=== PATIENT | male | born 1970 | race Caucasian/White ===

== ENCOUNTER 2016-10-11 20:38 | Emergency (ER) | payer BC ==
[2016-10-11 20:43] VITALS: RESP 16
[2016-10-11] MEDS ORDERED: SODIUM CHLORIDE 0.9% 1,000 ML IV STA (20:56)
[2016-10-11] MEDS ORDERED: HYDROmorphone 1 MG/ML 1 ML SYRINGE IVP STA (21:06)
[2016-10-11] MEDS ORDERED: ONDANSETRON 4 MG/2 ML VIAL IVP STA (21:06)
[2016-10-11] MEDS ORDERED: KETOROLAC 30 MG/ML 1 ML VIAL IVP STA (21:06)
[2016-10-11 21:16] LABS: Basophils % (A) 0 %; CH 31.2; CHCM 35.8; Eosinophils # (A) 0.1 k/uL (0-0.7); Eosinophils % (A) 1 %; HCT 44.8 % (39.0-53.0); HDW 2.74; HGB 15.9 gm/dL (13.0-17.5); Luc # (Auto) 0.17; Luc % (Auto) 2; Lymphocytes # (A) 1.5 k/uL (1.0-4.8); Lymphocytes % (A) 14 %; MCH 30.9 pg (25.0-35.0); MCHC 35.4 g/dL (31.0-37.0); MCV 87.5 fL (80.0-100.0); Mean Platelet Volume 8.8; Monocytes # (A) 0.5 k/uL (0-1.0); Monocytes % (A) 5 %; Neutrophils # (A) 8.3 k/uL (1.3-7.7); Neutrophils % (A) 78 %; RBC 5.12 m/uL (4.30-5.90); RDW 13.6 % (11.5-15.5); WBC 10.6 k/uL (3.8-10.6); WBC (Perox) 10.33
--- NOTE | 2016-10-11 21:39 | XR ---
EXAMINATION TYPE: XR KUB DATE OF EXAM: 10/11/2016 COMPARISON: May 12, 2011 HISTORY: Flank pain TECHNIQUE: 2 views FINDINGS: There is no sign of intestinal obstruction or pneumoperitoneum. Fecal pattern is normal. Th ere is no sign of a mass. There are no pathologic calcifications over the kidneys. Lung bases are velma ar. IMPRESSION: Nonacute abdomen. No change.
[2016-10-11 21:40] LABS: Calcium 9.4 mg/dL (8.4-10.2); Potassium 4.8 mmol/L (3.5-5.1); Total Protein 7.3 g/dL (6.3-8.2)
--- NOTE | 2016-10-11 21:42 | ED ---
Abdominal Pain HPI - General Chief Complaint: Abdominal Pain Stated Complaint: Poss kidney stones Time Seen by Provider: 10/11/16 20:56 Source: patient, RN notes reviewed Mode of arrival: ambulatory Limitations: no limitations - History of Present Illness Initial Comments: 46-year-old male present emergency department for left flank pain. Patient states it started this morning states he episodes nausea vomiting. Patient states that he's had a history kidney stones and this feels very similar. Patient states it wraps right around his lower abdomen. Patient had prior hernia surgeries in the past but nothing recent. Patient denies any fever, chills, chest pain, shortness breath, diarrhea constipation. - Related Data Home Medications Medication Instructions Recorded Confirmed Fluticasone/Salmeterol [Advair 1 puff INHALATION RT-BID 11/08/14 10/11/16 250-50 Diskus] Ibuprofen [Advil] 200 mg PO Q6HR PRN 10/11/16 10/11/16 Previous Rx's Medication Instructions Recorded HYDROcodone/APAP 7.5-325MG [[place] 1 tab PO Q6HR PRN #20 tab 10/11/16 7.5-325] Ondansetron Odt [Zofran Odt] 4 mg PO Q8HR PRN #10 tab 10/11/16 Allergies Allergy/AdvReac Type Severity Reaction Status Date / Time amoxicillin AdvReac THRUSH Verified 10/11/16 20:50 Review of Systems ROS Statement: Those systems with pertinent positive or pertinent negative responses have been documented in the HPI. ROS Other: All systems not noted in ROS Statement are negative. Past Medical History Past Medical History: Asthma Additional Past Medical History / Comment(s): FX LEFT FOREARM, kidney stones 2016 History of Any Multi-Drug Resistant Organisms: None Reported Past Surgical History: Hernia Repair Additional Past Surgical History / Comment(s): SINAN HERNIA, EPIDURAL INJECTIONS FOR PAIN IN PAST Additional Past Anesthesia/Blood Transfusion Reaction / Comment(s): STATES "HAS A HARD TIME WAKING UP" Past Psychological History: No Psychological Hx Reported Smoking Status: Never smoker Past Alcohol Use History: None Reported Past Drug Use History: None Reported - Past Family History Mother Family Medical History: No Reported History General Exam Limitations: no limitations General appearance: alert, in no apparent distress Respiratory exam: Present: normal lung sounds bilaterally. Absent: respiratory distress, wheezes, rales, rhonchi, stridor Cardiovascular Exam: Present: regular rate, normal rhythm, normal heart sounds. Absent: systolic murmur, diastolic murmur, rubs, gallop, clicks GI/Abdominal exam: Present: soft, tenderness (Mild left lower quadrant), normal bowel sounds. Absent: distended, guarding, rebound, rigid Back exam: Present: CVA tenderness (L). Absent: CVA tenderness (R) Neurological exam: Present: alert, oriented X3, CN II-XII intact Skin exam: Present: warm, dry, intact, normal color. Absent: rash Course Vital Signs 10/11/16 10/11/16 20:40 22:06 Temperature 97.8 F Pulse Rate 79 61 Respiratory 16 16 Rate Blood Pressure 144/85 126/79 O2 Sat by Pulse 100 98 Oximetry Medical Decision Making - Medical Decision Making 46-year-old male present emergency Department chief complaint of left flank pain. Patient has 6 mm stone distal left ureter along with additional 6 mm stone in this kidney. There is no evidence of edema checked infection. Patient does have renal failure which may be acute though he states he may have had a history of this unsure. Patient is advised that he needs a follow-up urologist on Friday and possible furnace cleaner. He does agree this plan. We did discuss not taking any NSAIDs. Return parameters were discussed. Case discussed Dr. Grady. - Lab Data Result diagrams: 10/11/16 21:05 10/11/16 21:05 Lab Results 10/11/16 10/11/16 10/11/16 Range/Units 21:05 21:05 21:08 WBC 10.6 (3.8-10.6) k/uL RBC 5.12 (4.30-5.90) m/uL Hgb 15.9 (13.0-17.5) gm/dL Hct 44.8 (39.0-53.0) % MCV 87.5 (80.0-100.0) fL MCH 30.9 (25.0-35.0) pg MCHC 35.4 (31.0-37.0) g/dL RDW 13.6 (11.5-15.5) % Plt Count 179 (150-450) k/uL Neutrophils % 78 % Lymphocytes % 14 % Monocytes % 5 % Eosinophils % 1 % Basophils % 0 % Neutrophils # 8.3 H (1.3-7.7) k/uL Lymphocytes # 1.5 (1.0-4.8) k/uL Monocytes # 0.5 (0-1.0) k/uL Eosinophils # 0.1 (0-0.7) k/uL Basophils # 0.0 (0-0.2) k/uL Sodium 141 (137-145) mmol/L Potassium 4.8 (3.5-5.1) mmol/L Chloride 105 (98-107) mmol/L Carbon Dioxide 25 (22-30) mmol/L Anion Gap 11 mmol/L BUN 18 (9-20) mg/dL Creatinine 1.96 H (0.66-1.25) mg/dL Est GFR (MDRD) Af Amer 45 (>60 ml/min/1.73 sqM) Est GFR (MDRD) Non-Af 37 (>60 ml/min/1.73 sqM) Glucose 101 H (74-99) mg/dL Calcium 9.4 (8.4-10.2) mg/dL Total Bilirubin 1.0 (0.2-1.3) mg/dL AST 38 (17-59) U/L ALT 68 (21-72) U/L Alkaline Phosphatase 85 (38-126) U/L Total Protein 7.3 (6.3-8.2) g/dL Albumin 4.6 (3.5-5.0) g/dL Amylase 37 (30-110) U/L Lipase 144 (23-300) U/L Urine Color Yellow Urine Appearance Clear (Clear) Urine pH 7.0 (5.0-8.0) Ur Specific [place] 1.020 (1.001-1.035) Urine Protein Trace H (Negative) Urine Glucose (UA) Negative (Negative) Urine Ketones 1+ H (Negative) Urine Blood Negative (Negative) Urine Nitrite Negative (Negative) Urine Bilirubin Negative (Negative) Urine Urobilinogen <2.0 (<2.0) mg/dL Ur Leukocyte Esterase Negative (Negative) Disposition Clinical Impression: Ureteral calculi, Acute renal failure Disposition: HOME SELF-CARE Condition: Stable Instructions: Kidney Stones (ED) Additional Instructions: Do not take any NSAIDs. Please return to the Emergency Department if symptoms worsen or any other concerns. Prescriptions: HYDROcodone/APAP 7.5-325MG [[place] 7.5-325] 1 tab PO Q6HR PRN #20 tab PRN Reason: Pain Ondansetron Odt [Zofran Odt] 4 mg PO Q8HR PRN #10 tab PRN Reason: Nausea Referrals: David Taylor MD [Primary Care Provider] - 1-2 days Ivan Contreras MD [STAFF PHYSICIAN] - 1-2 days Jaleesa Rosario MD [STAFF PHYSICIAN] - 1-2 days Time of Disposition: 22:42
[2016-10-11 21:45] LABS: Appearance,Urine Clear (Clear); Bilirubin,Urine Negative (Negative); Glucose,Urine (UA) Negative (Negative); Ketones,Urine 1+ (Negative); Leukocyte Esterase,Urine Negative (Negative); Nitrite,Urine Negative (Negative); Protein,Urine Trace (Negative); UA Billing (MACRO vs. MICRO) CHEM; Urobilinogen,Urine <2.0 mg/dL (<2.0)
--- NOTE | 2016-10-11 22:31 | CT ---
EXAM: CT Abdomen and Pelvis Without Intravenous Contrast CLINICAL HISTORY: Reason: left flank pain, TECHNIQUE: Axial computed tomography images of the abdomen and pelvis without intravenous contrast. CTDI is 22.00 mGy and DLP is 1128.60 mGy-cm. This CT exam was performed using one or more of the following dose reduction techniques: automated exposure control, adjustment of the mA and/or kV according to patient size, and/or use of iterative reconstruction technique. COMPARISON: No relevant prior studies available. FINDINGS: Lower thorax: Trace scarring/atelectasis at the lung bases. Micronodule in the left lower lobe. ABDOMEN: Liver: Hepatic steatosis. Gallbladder and bile ducts: Unremarkable. No calcified stones. No ductal dilation. Pancreas: Unremarkable. No ductal dilation. Spleen: Unremarkable. No splenomegaly. Adrenals: Unremarkable. No mass. Kidneys and ureters: 6 mm stone in the distal left ureter causing minimal hydronephrosis. Moderate perinephric fat stranding; recommend correlation with urinalysis. Additional 6 mm nonobstructing stone in the left kidney. Unremarkable right kidney. Stomach and bowel: Diverticulosis. No bowel inflammation or obstruction. Appendix: No findings to suggest acute appendicitis. PELVIS: Bladder: Unremarkable. No stones. Reproductive: Unremarkable as visualized. ABDOMEN and PELVIS: Intraperitoneal space: Unremarkable. No free air. No significant fluid collection. Bones/joints: Mild degenerative changes of the osseous structures. Left L5 pars defect with 2 mm anterolisthesis at L5-S1. No acute fracture. Soft tissues: Unremarkable. Vasculature: Unremarkable. No abdominal aortic aneurysm. Lymph nodes: Unremarkable. No enlarged lymph nodes. IMPRESSION: 1. 6 mm stone in the distal left ureter causing minimal hydronephrosis. Moderate perinephric fat stranding; recommend correlation with urinalysis. Additional 6 mm nonobstructing stone in the left kidney. 2. Diverticulosis. 3. Hepatic steatosis.
[2016-10-11 22:54] VITALS: BP 133/69; PULSE 74; TEMP 97.9
== END 2016-10-11 22:53 | disposition home or self-care (01) ==
LOC: EC 20:38
DX: N20.2 Calculus of kidney with calculus of ureter (principal); N17.9 Acute kidney failure, unspecified; Z79.899 Other long term (current) drug therapy; Z87.442 Personal history of urinary calculi; Z79.51 Long term (current) use of inhaled steroids; Z88.0 Allergy status to penicillin
CPT/HCPCS: 99284; 96374; 96375; 96361; 36415; 80053; 82150; 83690; 85025; 81003; 74000; 74176; J2405; J1885; J1170

== ENCOUNTER 2024-06-27 14:30 | Emergency (ER) | payer BC ==
--- NOTE | 2024-06-27 15:00 | ED ---
ENT HPI - General Chief complaint: ENT Stated complaint: Object lodged in throat Time Seen by Provider: 06/27/24 15:00 Source: patient Mode of arrival: ambulatory Limitations: no limitations - History of Present Illness Initial comments: 54-year-old male presented the ER for evaluation of foreign body sensation in throat. Patient states last night he had [employer] for dinner. He states he ate a hamburger and chili cheese fries. Since then he has been having irritation to his throat. He states it feels like there is something stuck in it. He states when he swallows it is mildly painful and he can feel the object move. Patient has been able to consume liquids but when attempting to eat a piece of bread he threw it up within minutes. He denies a history of esophageal strictures. He denies any difficulty breathing, chest pain, abdominal pain, constipation/diarrhea, urinary complaints, fevers or chills. No other complaints at this time. - Related Data Home Medications Medication Instructions Recorded Confirmed Fluticasone Propion/Salmeterol 1 puff INHALATION RT-BID 11/08/14 10/11/16 [Advair 250-50 Diskus] Ibuprofen [Advil] 200 mg PO Q6HR PRN 10/11/16 10/11/16 Previous Rx's Medication Instructions Recorded HYDROcodone/APAP 7.5-325MG [[place] 1 tab PO Q6HR PRN #20 tab 10/11/16 7.5-325] Ondansetron Odt [Zofran Odt] 4 mg PO Q8HR PRN #10 tab 10/11/16 Allergies Allergy/AdvReac Type Severity Reaction Status Date / Time amoxicillin AdvReac THRUSH Verified 06/27/24 14:42 Review of Systems ROS Statement: Those systems with pertinent positive or pertinent negative responses have been documented in the HPI. ROS Other: All systems not noted in ROS Statement are negative. Past Medical History Past Medical History: Asthma Additional Past Medical History / Comment(s): FX LEFT FOREARM, kidney stones 2016 History of Any Multi-Drug Resistant Organisms: None Reported Past Surgical History: Hernia Repair Additional Past Surgical History / Comment(s): SINAN HERNIA, EPIDURAL INJECTIONS FOR PAIN IN PAST Additional Past Anesthesia/Blood Transfusion Reaction / Comment(s): STATES "HAS A HARD TIME WAKING UP" Past Psychological History: No Psychological Hx Reported Smoking Status: Never smoker Past Alcohol Use History: None Reported Past Drug Use History: None Reported - Past Family History Mother Family Medical History: No Reported History General Exam Limitations: no limitations General appearance: alert, in no apparent distress ENT exam: Present: mucous membranes moist (Oropharynx is mildly erythematous bilateral tonsils mildly edematous. No exudates present.) Neck exam: Present: normal inspection. Absent: tenderness, meningismus, lymphadenopathy Respiratory exam: Present: normal lung sounds bilaterally. Absent: respiratory distress, wheezes, rales, rhonchi, stridor Cardiovascular Exam: Present: regular rate, normal rhythm, normal heart sounds. Absent: systolic murmur, diastolic murmur, rubs, gallop, clicks Neurological exam: Present: alert, oriented X3, CN II-XII intact Skin exam: Present: warm, dry, intact, normal color. Absent: rash Course Vital Signs 06/27/24 06/27/24 14:38 16:02 Temperature 97.8 F 98.4 F Pulse Rate 78 84 Respiratory 18 16 Rate Blood Pressure 123/85 134/91 O2 Sat by Pulse 99 99 Oximetry Medical Decision Making - Medical Decision Making Was pt. sent in by a medical professional or institution (, PA, [employer], urgent care, hospital, or usp...) When possible be specific @ -No Did you speak to anyone other than the patient for history (EMS, parent, family, police, friend...)? What history was obtained from this source @ -Patient's , at bedside, aiding in HPI and past medical history. Did you review nursing and triage notes (agree or disagree)? Why? @ -I reviewed and agree with nursing and triage notes Were old charts reviewed (outside hosp., previous admission, EMS record, old EKG, old radiological studies, urgent care reports/EKG's, usp records)? Report findings @ -No old charts were reviewed Differential Diagnosis (chest pain, altered mental status, abdominal pain women, abdominal pain men, vaginal bleeding, weakness, fever, dyspnea, syncope, headache, dizziness, GI bleed, back pain, seizure, CVA, palpatations, mental health, musculoskeletal)? @ -Esophageal foreign body, aspiration, esophageal obstruction, GERD... This list is not meant to be all-inclusive EKG interpreted by me (3pts min.). @ -None done X-rays interpreted by me (1pt min.). @ -None done CT interpreted by me (1pt min.). @ -None done U/S interpreted by me (1pt. min.). @ -None done What testing was considered but not performed or refused? (CT, X-rays, U/S, labs)? Why? @ -None What meds were considered but not given or refused? Why? @ -None Did you discuss the management of the patient with other professionals (professionals i.e. , PA, [employer], lab, RT, psych nurse, hospital social worker, dog show judge, teacher, patrol officer, keycase assembler)? Give summary @ -No Was smoking cessation discussed for >3mins.? @ -No Was critical care preformed (if so, how long)? @ -No Were there social determinants of health that impacted care today? How? (Homel essness, low income, unemployed, alcoholism, drug addiction, transportation, low edu. Level, literacy, decrease access to med. care, group home, rehab)? @ -No Was there de-escalation of care discussed even if they declined (Discuss DNR or withdrawal of care, Hospice)? DNR status @ -No What co-morbidities impacted this encounter? (DM, HTN, Smoking, COPD, CAD, Cancer, CVA, ARF, Chemo, Hep., AIDS, mental health diagnosis, sleep apnea, morbid obesity)? @ -None Was patient admitted / discharged? Hospital course, mention meds given and route, prescriptions, significant lab abnormalities, going to OR and other pertinent info. @ -Discharge. 54-year-old male presented the ER for evaluation of foreign body sensation in throat. Vitals within acceptable limits. Patient in no signs of acute distress nontoxic-appearing. Patient given IV glucagon and Ativan and instructed to drink carbonated beverage. Patient felt relief after this. Patient tolerating oral intake and was able to consume water and Jell-O without difficulty. I instructed patient to follow-up with PCP and GI for further evaluation and treatment. Patient is agreeable. Return parameters discussed. Patient discharged stable condition. Patient verbally expressed understanding and agreement with care plan. Case discussed with ED attending, Dr. Chacon. Undiagnosed new problem with uncertain prognosis? @ -No Drug Therapy requiring intensive monitoring for toxicity (Heparin, Nitro, Insulin, Cardizem)? @ -No Were any procedures done? @ -No Diagnosis/symptom? @ -Foreign body sensation in throat Acute, or Chronic, or Acute on Chronic? @ -acute Uncomplicated (without systemic symptoms) or Complicated (systemic symptoms)? @ -Uncomplicated Side effects of treatment? @ -No Exacerbation, Progression, or Severe Exacerbation? @ -No Poses a threat to life or bodily function? How? (Chest pain, [place], [place], pneumonia, PE, COPD, DKA, ARF, appy, cholecystitis, CVA, Diverticulitis, Homicidal, Suicidal, threat to staff... and all critical care pts) @ -No Disposition Clinical Impression: Foreign body sensation, throat Disposition: HOME SELF-CARE Condition: Stable Instructions (If sedation given, give patient instructions): Esophageal Foreign Body (ED) Additional Instructions: Follow-up with PCP. Return to the ER for any new or worsening concerns. I recommend liquid or soft foods diet. Is patient prescribed a controlled substance at d/c from ED?: No Referrals: David Taylor MD [Primary Care Provider] - 1-2 days Time of Disposition: 15:46
[2024-06-27] MEDS: GLUCAGON 1 MG/ML VIAL IVP STA (15:13)
[2024-06-27 16:09] VITALS: BP 134/91; PULSE 84; RESP 16; TEMP 98.4
== END 2024-06-27 16:02 | disposition home or self-care (01) ==
LOC: EC 14:30
DX: R09.A2 Foreign body sensation, throat (principal); Z88.0 Allergy status to penicillin
CPT/HCPCS: 99283; 96374; 96375; J1610; J3360

== ENCOUNTER 2024-07-07 09:46 | Emergency (ER) | payer BC ==
[2024-07-07] MEDS: KETOROLAC 15 MG/ML 1 ML VIAL IVP STA (10:17)
[2024-07-07] MEDS: SODIUM CHLORIDE 0.9% 1,000 ML IV ONE (10:17)
[2024-07-07] MEDS: ONDANSETRON 4 MG/2 ML VIAL IVP STA (10:18)
[2024-07-07] MEDS: DICYCLOMINE 10 MG/ML 2 ML AMP IM STA (10:18)
--- NOTE | 2024-07-07 10:33 | ED ---
Abdominal Pain HPI - General Chief Complaint: Abdominal Pain Stated Complaint: abd pain Time Seen by Provider: 07/07/24 09:52 Source: patient, RN notes reviewed Mode of arrival: ambulatory Limitations: no limitations - History of Present Illness Initial Comments: This is a 54 year old male who presents to the emergency department for abdominal pain. Reports intermittent lower abdominal pain over the last week. He also reports intermittent diarrhea, nausea, and vomiting. Unsure what is triggering his symptoms. He does believe it to be positional to some extent. Denies any fevers/chills. He saw his PCP this morning, who advised him to come here for further evaluation. He does also note that he recently had an abnormal Cologuard. He was advised to make a follow-up appointment with his PCP to discuss a colonoscopy. MD Complaint: abdominal pain - Related Data Home Medications Medication Instructions Recorded Confirmed Fluticasone Propion/Salmeterol 1 puff INHALATION RT-BID 11/08/14 07/07/24 [Advair 250-50 Diskus] Atorvastatin [Lipitor] 20 mg PO DAILY 07/07/24 07/07/24 Semaglutide [Ozempic] 2 mg SQ SA 07/07/24 07/07/24 lisinopriL [Zestril] 2.5 mg PO DAILY 07/07/24 07/07/24 Previous Rx's Medication Instructions Recorded Dicyclomine [Bentyl] 20 mg PO QID PRN #30 tablet 07/07/24 Ketorolac [Toradol] 10 mg PO Q6HR PRN #15 tab 07/07/24 Ondansetron Odt [Zofran Odt] 4 mg PO Q8HR PRN #20 tab 07/07/24 Allergies Allergy/AdvReac Type Severity Reaction Status Date / Time amoxicillin AdvReac THRUSH Verified 07/07/24 11:17 Review of Systems ROS Statement: Those systems with pertinent positive or pertinent negative responses have been documented in the HPI. ROS Other: All systems not noted in ROS Statement are negative. Past Medical History Past Medical History: Asthma Additional Past Medical History / Comment(s): FX LEFT FOREARM, kidney stones 2015 History of Any Multi-Drug Resistant Organisms: None Reported Past Surgical History: Hernia Repair Additional Past Surgical History / Comment(s): SINAN HERNIA, EPIDURAL INJECTIONS FOR PAIN IN PAST Additional Past Anesthesia/Blood Transfusion Reaction / Comment(s): STATES "HAS A HARD TIME WAKING UP" Past Psychological History: No Psychological Hx Reported Smoking Status: Never smoker Past Alcohol Use History: None Reported Past Drug Use History: None Reported - Past Family History Mother Family Medical History: No Reported History General Exam Limitations: no limitations General appearance: alert, in no apparent distress Head exam: Present: atraumatic, normocephalic, normal inspection Respiratory exam: Present: normal lung sounds bilaterally. Absent: respiratory distress, wheezes, rales, rhonchi, stridor Cardiovascular Exam: Present: regular rate, normal rhythm GI/Abdominal exam: Present: soft, normal bowel sounds. Absent: distended, tenderness, guarding, rebound, rigid Neurological exam: Present: alert, oriented X3, CN II-XII intact Psychiatric exam: Present: normal affect, normal mood Skin exam: Present: warm, dry, intact, normal color. Absent: rash Course Vital Signs 07/07/24 07/07/24 07/07/24 09:47 10:45 12:17 Temperature 97.9 F 97.8 F Pulse Rate 88 65 70 Respiratory 18 16 17 Rate Blood Pressure 113/83 131/92 120/82 O2 Sat by Pulse 98 97 98 Oximetry Medical Decision Making - Medical Decision Making This is a 54 year old male who presents to the emergency department for abdominal pain. Was pt. sent in by a medical professional or institution? @ -No Did you speak to anyone other than the patient for history? @ -No Did you review nursing and triage notes? @ -Yes, and I agree, it is accurate with regards to the patient's symptoms. Were old charts reviewed? @ -No Differential Diagnosis? @ -Differential Abdominal Pain Men: Appendicitis, cholecystitis, diverticulosis, ischemic bowel, pancreatitis, hepatitis, UTI, gastroenteritis, AAA, incarcerated hernia, bowel obstruction, constipation, inflammatory bowel, hepatitis, peptic ulcer disease, splenic infarction, perforated viscus, testicular torsion, this is not meant to be an all-inclusive list EKG interpreted by me (3pts min.)? @ -Not obtained X-rays interpreted by me (1pt min.)? @ -Not obtained CT interpreted by me (1pt min.)? @ -CT scan of the abdomen and pelvis obtained. My interpretation identifies no bowel wall thickening or free air. U/S interpreted by me (1pt. min.)? @ -Not obtained What testing was considered but not performed? (CT, X-rays, U/S, labs)? Why? @ -None What meds were considered but not given? Why? @ -None Did you discuss the management of the patient with other professionals? @ -No Did you reconcile home meds? @ -No Was smoking cessation discussed for >3mins.? @ -No Was critical care preformed (if so, how long)? @ -No Were there social determinants of health that impacted care today? How? (Homelessness, low income, unemployed, alcoholism, drug addiction, t ransportation, low edu. Level, literacy, decrease access to med. care, nursing home, rehab)? @ -No Was there de-escalation of care discussed even if they declined? (Discuss DNR or withdrawal of care, Hospice)? @ -No What co-morbidities impacted this encounter? (DM, HTN, Smoking, COPD, CAD, Cancer, CVA, Hep., AIDS, mental health diagnosis, sleep apnea, morbid obesity)? @ -None Was patient admitted / discharged? @ -Discharged. Lab work unremarkable. Urinalysis negative for signs of infection. CT scan of the abdomen and pelvis obtained revealing no acute process. Symptoms treated in the emergency department. Advised that he needs to follow-up on the abnormal Cologuard study for a colonoscopy. The cause of his pain at this point is not entirely clear. Bentyl, Toradol, and Zofran prescribed for further management, all of which seemed to help in the emergency department. Patient discharged home in stable condition. Case discussed with ED attending Dr. Maciel. Return precautions reviewed in depth, the patient is instructed to return to the emergency department with any new, worsening, or concerning symptoms. Patient verbalized understanding. Undiagnosed new problem with uncertain prognosis? @ -None Drug Therapy requiring intensive monitoring for toxicity (Heparin, Nitro, Insulin, Cardizem)? @ -None Were any procedures done? @ -None Diagnosis/symptom? @ -Abdominal pain, nausea and vomiting, diarrhea Acute, or Chronic, or Acute on Chronic? @ -Acute Uncomplicated (without systemic symptoms) or Complicated (systemic symptoms)? @ -Uncomplicated Side effects of treatment? @ -None Exacerbation, Progression, or Severe Exacerbation] @ -Not applicable Poses a threat to life or bodily function? @ -No - Lab Data Result diagrams: 07/07/24 10:37 07/07/24 10:37 Lab Results 07/07/24 07/07/24 07/07/24 Range/Units 10:37 10:37 10:37 WBC 10.3 (3.8-10.6) k/uL RBC 5.54 (4.30-5.90) m/uL Hgb 17.1 (13.0-17.5) gm/dL Hct 50.0 (39.0-53.0) % MCV 90.1 (80.0-100.0) fL MCH 30.8 (25.0-35.0) pg MCHC 34.2 (31.0-37.0) g/dL RDW 13.2 (11.5-15.5) % Plt Count 194 (150-450) k/uL MPV 8.6 Neutrophils % 72 % Lymphocytes % 15 % Monocytes % 4 % Eosinophils % 8 % Basophils % 0 % Neutrophils # 7.4 (1.3-7.7) k/uL Lymphocytes # 1.5 (1.0-4.8) k/uL Monocytes # 0.5 (0-1.0) k/uL Eosinophils # 0.8 H (0-0.7) k/uL Basophils # 0.0 (0-0.2) k/uL Sodium 136 L (137-145) mmol/L Potassium 4.7 (3.5-5.1) mmol/L Chloride 98 (98-107) mmol/L Carbon Dioxide 28 (22-30) mmol/L Anion Gap 10 mmol/L BUN 21 H (9-20) mg/dL Creatinine 1.20 (0.66-1.25) mg/dL Est GFR (CKD-EPI)AfAm 78 (>60 ml/min/1.73 sqM) Est GFR (CKD-EPI)NonAf 68 (>60 ml/min/1.73 sqM) Glucose 100 H (74-99) mg/dL Plasma Lactic Acid Thang 1.5 (0.7-2.0) mmol/L Calcium 9.6 (8.4-10.2) mg/dL Magnesium 1.9 (1.6-2.3) mg/dL Total Bilirubin 1.0 (0.2-1.3) mg/dL AST 23 (17-59) U/L ALT 35 (4-49) U/L Alkaline Phosphatase 98 (38-126) U/L Total Protein 6.8 (6.3-8.2) g/dL Albumin 4.2 (3.5-5.0) g/dL Amylase 49 (30-110) U/L Lipase 251 (23-300) U/L Urine Color Urine Appearance (Clear) Urine pH (5.0-8.0) Ur Specific Alvo (1.001-1.035) Urine Protein (Negative) Urine Glucose (UA) (Negative) Urine Ketones (Negative) Urine Blood (Negative) Urine Nitrite (Negative) Urine Bilirubin (Negative) Urine Urobilinogen (<2.0) mg/dL Ur Leukocyte Esterase (Negative) 07/07/24 Range/Units 12:28 WBC (3.8-10.6) k/uL RBC (4.30-5.90) m/uL Hgb (13.0-17.5) gm/dL Hct (39.0-53.0) % MCV (80.0-100.0) fL MCH (25.0-35.0) pg MCHC (31.0-37.0) g/dL RDW (11.5-15.5) % Plt Count (150-450) k/uL MPV Neutrophils % % Lymphocytes % % Monocytes % % Eosinophils % % Basophils % % Neutrophils # (1.3-7.7) k/uL Lymphocytes # (1.0-4.8) k/uL Monocytes # (0-1.0) k/uL Eosinophils # (0-0.7) k/uL Basophils # (0-0.2) k/uL Sodium (137-145) mmol/L Potassium (3.5-5.1) mmol/L Chloride (98-107) mmol/L Carbon Dioxide (22-30) mmol/L Anion Gap mmol/L BUN (9-20) mg/dL Creatinine (0.66-1.25) mg/dL Est GFR (CKD-EPI)AfAm (>60 ml/min/1.73 sqM) Est GFR (CKD-EPI)NonAf (>60 ml/min/1.73 sqM) Glucose (74-99) mg/dL Plasma Lactic Acid Thang (0.7-2.0) mmol/L Calcium (8.4-10.2) mg/dL Magnesium (1.6-2.3) mg/dL Total Bilirubin (0.2-1.3) mg/dL AST (17-59) U/L ALT (4-49) U/L Alkaline Phosphatase (38-126) U/L Total Protein (6.3-8.2) g/dL Albumin (3.5-5.0) g/dL Amylase (30-110) U/L Lipase (23-300) U/L Urine Color Light Yellow Urine Appearance Clear (Clear) Urine pH 6.5 (5.0-8.0) Ur Specific Alvo >1.050 H (1.001-1.035) Urine Protein Trace H (Negative) Urine Glucose (UA) Negative (Negative) Urine Ketones 1+ H (Negative) Urine Blood Negative (Negative) Urine Nitrite Negative (Negative) Urine Bilirubin Negative (Negative) Urine Urobilinogen <2.0 (<2.0) mg/dL Ur Leukocyte Esterase Negative (Negative) - Radiology Data Radiology results: report reviewed, image reviewed Disposition Clinical Impression: Abdominal pain, Nausea and vomiting, Diarrhea Disposition: HOME SELF-CARE Instructions (If sedation given, give patient instructions): Abdominal Pain (ED) Additional Instructions: Return to the emergency department with any new, worsening, or concerning symptoms. Take the Toradol with Tylenol as needed for pain relief. If you choose to take the Toradol, do not take any other anti-inflammatories such as ibuprofen, take one or the other. Take the Bentyl up to 4 times daily as needed for abdominal pain/cramping. You can take the Zofran up to every 8 hours as needed for nausea and vomiting. Follow up with your primary care provider in 1- 2 days. Prescriptions: Dicyclomine [Bentyl] 20 mg PO QID PRN #30 tablet PRN Reason: Gi Upset Ketorolac [Toradol] 10 mg PO Q6HR PRN #15 tab PRN Reason: Pain Ondansetron Odt [Zofran Odt] 4 mg PO Q8HR PRN #20 tab PRN Reason: Nausea And Vomiting Is patient prescribed a controlled substance at d/c from ED?: No Referrals: David Taylor MD [Primary Care Provider] - 1-2 days Time of Disposition: 13:19
[2024-07-07 10:50] LABS: Basophils % (A) 0 %; Eosinophils # (A) 0.8 k/uL (0-0.7); Eosinophils % (A) 8 %; HGB 17.1 gm/dL (13.0-17.5); Lymphocytes # (A) 1.5 k/uL (1.0-4.8); Lymphocytes % (A) 15 %; MCH 30.8 pg (25.0-35.0); MCHC 34.2 g/dL (31.0-37.0); MCV 90.1 fL (80.0-100.0); Mean Platelet Volume 8.6; Monocytes # (A) 0.5 k/uL (0-1.0); Monocytes % (A) 4 %; Neutrophils # (A) 7.4 k/uL (1.3-7.7); Neutrophils % (A) 72 %; Platelet Count 194 k/uL (150-450); RBC 5.54 m/uL (4.30-5.90); RDW 13.2 % (11.5-15.5); WBC 10.3 k/uL (3.8-10.6)
[2024-07-07 11:16] LABS: ALT 35 U/L (4-49); AST 23 U/L (17-59); African American GFR (CKD) 78 (>60 ml/min/1.73 sqM); Albumin 4.2 g/dL (3.5-5.0); Alkaline Phosphatase 98 U/L (38-126); Amylase 49 U/L (30-110); Anion Gap 10 mmol/L; Blood Urea Nitrogen 21 mg/dL (9-20); Calcium 9.6 mg/dL (8.4-10.2); Carbon Dioxide 28 mmol/L (22-30); Chloride 98 mmol/L (98-107); Glucose 100 mg/dL (74-99); Lipase 251 U/L (23-300); Magnesium 1.9 mg/dL (1.6-2.3); Non-African American GFR(CKD) 68 (>60 ml/min/1.73 sqM); Potassium 4.7 mmol/L (3.5-5.1); Sodium 136 mmol/L (137-145); Total Protein 6.8 g/dL (6.3-8.2)
--- NOTE | 2024-07-07 12:16 | CT ---
EXAMINATION TYPE: CT abdomen pelvis w con DATE OF EXAM: 07/07/2024 11:47 AM COMPARISON: CT abdomen pelvis most recent from 10/11/2016. CLINICAL INDICATION: Male, 54 years old with history of Lower abdominal pain; ABD PAIN TECHNIQUE: Axial CT abdomen pelvis w con;Sagittal and coronal reformats were created on a separate w orkstation. Contrast used:100 mL of Isovue 300 with IV Contrast, (none if empty) Oral contrast used: without Oral Contrast (none if empty) CT DLP: 1417.1 mGycm, Automated exposure control for dose reduction was used. FINDINGS: LOWER CHEST: Unremarkable ABDOMEN LIVER: Diffusely hypoattenuating parenchyma. GALLBLADDER AND BILE DUCTS: Unremarkable. PANCREAS: Unremarkable. SPLEEN: Unremarkable. ADRENAL GLANDS: Unremarkable. KIDNEYS AND URETERS: No evidence for hydronephrosis or calcification. Previous hydronephrosis no long er visualized and from 2016. PELVIS BLADDER: No evidence for wall thickening or mass given limitations of exam. REPRODUCTIVE: Unremarkable. ABDOMEN & PELVIS STOMACH AND BOWEL: No evidence of bowel obstruction. Appendix is normal. Scattered colonic diverticul a. PERITONEUM/RETROPERITONEUM: No evidence of pneumoperitoneum or free fluid. VASCULATURE: No evidence of aortic aneurysm. MUSCULOSKELETAL: No acute osseous abnormalities. Mild degeneration changes L5-S1 with disc space narr owing osteophyte formation and facet joint arthropathy. This grade 1 anterolisthesis of L5 on S1. LYMPH NODES: No gross evidence for lymphadenopathy. SOFT TISSUE/ABDOMINAL WALL: Fat-containing umbilical hernia. Left inguinal hernia repair changes. No evidence for remaining hernia. IMPRESSION: 1. No evidence for acute abdominal process. 2. Left inguinal hernia repair changes. No evidence for remaining hernia. 3. Hepatic steatosis. 4. Mild degeneration changes L5-S1 with disc space narrowing osteophyte formation and facet joint ar thropathy. This grade 1 anterolisthesis of L5 on S1. 5. Colonic diverticulosis. [facility], , 07/07/2024 12:14 PM
[2024-07-07 13:07] LABS: Appearance,Urine Clear (Clear); Bilirubin,Urine Negative (Negative); Blood,Urine Negative (Negative); Color,Urine Light Yellow; Glucose,Urine (UA) Negative (Negative); Ketones,Urine 1+ (Negative); Leukocyte Esterase,Urine Negative (Negative); Nitrite,Urine Negative (Negative); PH, Urine 6.5 (5.0-8.0); Protein,Urine Trace (Negative); Urobilinogen,Urine <2.0 mg/dL (<2.0)
[2024-07-07 13:10] LABS: Specific Gravity,Urine >1.050 (1.001-1.035)
[2024-07-07 14:18] VITALS: BP 121/88; PULSE 69; RESP 18; TEMP 98.4
== END 2024-07-07 14:19 | disposition home or self-care (01) ==
LOC: EC 09:46
DX: R10.30 Lower abdominal pain, unspecified (principal); R11.2 Nausea with vomiting, unspecified; R19.7 Diarrhea, unspecified; Z88.0 Allergy status to penicillin
CPT/HCPCS: 99284; 96374; 96375; 96361; 96372; 36415; 80053; 82150; 83605; 83690; 83735; 85025; 81003; 74177; J0500; J2405; J1885; Q9967